=== PATIENT | male | born 1955 | race Caucasian/White ===

== ENCOUNTER → 2020-06-03 10:26 | Outpatient (BNVA) | payer MEDICARE, SELFPAY | PROVIDERS: PCP Internal Medicine; Visit Provider Urology | DX: R97.20 Elevated prostate specific antigen [PSA] (principal); N52.01 Erectile dysfunction due to arterial insufficiency; N48.6 Induration penis plastica | CPT/HCPCS: Q3014 ==

== ENCOUNTER → 2021-02-22 13:12 | Outpatient (BNVA) | payer MEDICARE, SELFPAY | PROVIDERS: Visit Provider Urology | DX: N40.1 Benign prostatic hyperplasia with lower urinary tract symptoms (principal); N13.8 Other obstructive and reflux uropathy; N52.01 Erectile dysfunction due to arterial insufficiency; N48.6 Induration penis plastica; R97.20 Elevated prostate specific antigen [PSA] | CPT/HCPCS: Q3014 ==

== ENCOUNTER → 2021-08-23 15:33 | Outpatient (BNVA) | payer MEDICARE, SELFPAY | PROVIDERS: Visit Provider Urology | DX: N40.1 Benign prostatic hyperplasia with lower urinary tract symptoms (principal); N13.8 Other obstructive and reflux uropathy; R97.20 Elevated prostate specific antigen [PSA]; N52.01 Erectile dysfunction due to arterial insufficiency | CPT/HCPCS: 51798; 99212 ==

== ENCOUNTER → 2022-04-05 08:31 | Outpatient (BNVA) | payer MEDICARE, SELFPAY | PROVIDERS: PCP Internal Medicine; Visit Provider Urology | DX: N40.1 Benign prostatic hyperplasia with lower urinary tract symptoms (principal); N13.8 Other obstructive and reflux uropathy; R97.20 Elevated prostate specific antigen [PSA] | CPT/HCPCS: Q3014 ==

== ENCOUNTER → 2022-10-11 08:32 | Outpatient (BNVA) | payer MEDICARE, SELFPAY | PROVIDERS: PCP Internal Medicine; Visit Provider Urology | DX: N40.1 Benign prostatic hyperplasia with lower urinary tract symptoms (principal); N13.8 Other obstructive and reflux uropathy; N48.6 Induration penis plastica | CPT/HCPCS: 51798; 99212 ==

== ENCOUNTER 2023-04-17 08:11 | Outpatient (AMB) | payer MEDICARE, SELFPAY ==
--- NOTE | 2023-04-17 08:15 | MHC.OFFVIS ---
Intake Intake Visit Reasons: 6m/PSA(set) Intake Note: Patient is Present for Telephone Follow Up PSA Urology Med: Finasteride, Sildenafil Antibiotic Allergy: None Blood Thinner: Eliquis Allergies acetaminophen [Vicodin] Allergy (Unknown, Verified 04/17/23 08:16) unknown hydrocodone [Vicodin] Allergy (Unknown, Verified 04/17/23 08:16) unknown oxycodone [Percocet] Allergy (Unknown, Verified 04/17/23 08:16) unknown Percodan Allergy (Unknown, Uncoded 04/17/23 08:16) unknown Medication List - Last Reconciled 04/17/23 by Ranjit Reddy MD apixaban (Eliquis) 5 mg PO BID atorvastatin 20 mg PO DAILY diltiazem HCl ER 360 mg PO DAILY finasteride 5 mg PO DAILY 90 days losartan 50 mg PO DAILY meclizine 25 mg PO BEDTIME pantoprazole 20 mg PO DAILY sildenafil 50 mg PO DAILY PRN 30 days sotalol 120 mg PO BID HPI HPI Comments History of Present Illness Details Darin ORDOÑEZ is a very pleasant male. He is a patient of Dr Hidalgo. He is seen for the following urologic conditions. - erectile dysfunction - elevated PSA Telemedicine Evaluation 15 min Consultation D[employer] Smiley Video attempted PSA stable Some progression of urinary symptoms Continue to follow Erectile dysfunction: Continues to have good response to low-dose sildenafil as needed - 50 mg prescription provided Peyronie's is staying stable and not interfering with erections. He presents today for for continued evaluation and management of erectile dysfunction. Symptoms have been present for/since gradually. Current treatment includes Viagra/sildenafil - 50 mg as needed on empty stomach At this time he experiences erections 04/06 are partial and insufficient for vaginal penetration, that undergo rapid detumesence after penetration, JOSEPH 12-16 Mild-Moderate ED. Nocturnal erections do occur. Currently they are in a stable relationship. Associated problems hypertension Yes diabetes No dyslipidemia Yes Overall he is satisfied with the current management. Therapeutic plan includes continue with current doses. Elevated PSA/Abnormal LUL: PSA fall in on finasteride to 3.8 Continue with medication and repeat in 6 months Laboratory investigations include a free and total PSA evaluation 11/05 5.0 F 14%, 05/07 4.7 12%, 05/08 4.3 14%, 05/09 4.7 %16, 01/08 6.2, 08/09 3.8, 03/11 3.8, 10/10 3.9, 04/12 3.2 Therapeutic plan will be continued surveillance [facility] Medical History High cholesterol HTN (hypertension) Peyronie's disease Elevated PSA Erectile dysfunction due to arterial insufficiency Incomplete emptying of bladder Surgical History History of gastrointestinal surgery Review of Systems Const All systems reviewed & are unremarkable except as noted in HPI and below Reports no additional complaints Resp Reports no additional complaints GI Reports no additional complaints Reports as per HPI Musc Reports no additional complaints Physical Exam Telemedicine evaluation Appropriate responses Regular breathing rate and rhythm HEENT Head: Yes normal to inspection Ears: hearing grossly normal bilaterally Eyes General: appearance normal, both eyes and all related structures Neck Neck: Yes normal visual inspection Chest Chest palpation & inspection: normal inspection of the chest Resp Effort & Inspection: normal respiratory effort and able to speak in complete sentences Assessment & Plan Assessment & Plan (1) BPH w urinary obs/LUTS: Code(s): N40.1 - Benign prostatic hyperplasia with lower urinary tract symptoms; N13.8 - Other obstructive and reflux uropathy (2) Erectile dysfunction due to arterial insufficiency: Code(s): N52.01 - Erectile dysfunction due to arterial insufficiency (3) Elevated PSA: Code(s): R97.20 - Elevated prostate specific antigen [PSA] Plan Six month follow-up labs Orders: Orders PSA,Total (Free>4and<10) 6 Months R97.20 - Elevated prostate specific antigen [PSA] Patient Instructions: Imaging studies, laboratory and physical exam results were discussed and reviewed in detail. No major barriers to patient understanding were identified. An opportunity to ask questions regarding the treatment plan was provided. All questions were answered. The patient expressed understanding and agreement with the above treatment plan. The patient is aware they should contact our office by phone for worsening of their current condition or the appearance of new urologic symptoms. Compliance is encouraged with any medications and followup testing that is ordered. It is a privilege to participate in the urologic care of your patient. If you have any questions or concerns regarding treatment for the above conditions, or other urologic issues, please do not hesitate to contact me. The office telephone contact is [phone]. This note is constructed using voice recognition software. While every effort has been made to ensure accuracy systems development manager errors may have been included. Yours sincerely, Dr Ranjit Reddy MD, [facility] - Urology Providers of Expert, Compassionate Care for the Genitourinary System Telehealth Telehealth Location of provider rendering services: practice address Location of patient: address on file Patient Identification confirmed using: Name, : Yes Telehealth method: video Patient verbally consented to treatment: Yes Patient verbally consented to billing insurance company: Yes Patient informed of any privacy concerns related to visit: Yes Coding Level of Care Code Tele Est Pt Level 3 (85357) Diagnoses BPH w urinary obs/LUTS N40.1; N13.8 Erectile dysfunction due to arterial insufficiency N52.01 Elevated PSA R97.20
== END 2023-04-17 09:42 | disposition home or self-care (01) ==
LOC: HO.HUSH 08:11
PROVIDERS: PCP Internal Medicine; Visit Provider Urology
DX: N40.1 Benign prostatic hyperplasia with lower urinary tract symptoms (principal); N13.8 Other obstructive and reflux uropathy; N52.01 Erectile dysfunction due to arterial insufficiency; R97.20 Elevated prostate specific antigen [PSA]
CPT/HCPCS: 99213

== ENCOUNTER → 2023-04-17 08:11 | Outpatient (BNVA) | payer MEDICARE, SELFPAY | PROVIDERS: PCP Internal Medicine; Visit Provider Urology ==

== ENCOUNTER 2023-10-16 08:23 | Outpatient (AMB) | payer MEDICARE, SELFPAY ==
--- NOTE | 2023-10-16 08:25 | A.OFFVIS_ITS ---
Intake Visit Reasons: 6M PSA(psa?) Intake Note: Patient is Present for Telephone Follow Up PSA Urology Med: Finasteride, Sildenafil Antibiotic Allergy: None Blood Thinner: Eliquis Optical Effects Layout Person Required: No Accompanied by: Self / Same As Patient Allergies acetaminophen [Vicodin] Allergy (Unknown, Verified 04/17/23 08:16) unknown hydrocodone [Vicodin] Allergy (Unknown, Verified 04/17/23 08:16) unknown oxycodone [Percocet] Allergy (Unknown, Verified 04/17/23 08:16) unknown Percodan Allergy (Unknown, Uncoded 04/17/23 08:16) unknown HPI Comments Details: Darin ORDOÑEZ is a very pleasant male. He is a patient of Dr Hidalgo. He is seen for the following urologic conditions. - erectile dysfunction - elevated PSA PSA stable Some progression of urinary symptoms Remains on medication Twelve month follow-up LUL 2+ Erectile dysfunction: Continues to have good response to low-dose sildenafil as needed - 50 mg prescription provided Peyronie's is staying stable and not interfering with erections. He presents today for for continued evaluation and management of erectile dysfunction. Symptoms have been present for/since gradually. Current treatment includes Viagra/sildenafil - 50 mg as needed on empty stomach At this time he experiences erections 04/06 are partial and insufficient for vaginal penetration, that undergo rapid detumesence after penetration, JOSEPH 12-16 Mild-Moderate ED. Nocturnal erections do occur. Currently they are in a stable relationship. Associated problems hypertension Yes diabetes No dyslipidemia Yes Overall he is satisfied with the current management. Therapeutic plan includes continue with current doses. Elevated PSA/Abnormal LUL: PSA remains stable at 3.8 Continue with finasteride medication and repeat in 6 months Laboratory investigations include a free and total PSA evaluation 11/05 5.0 F 14%, 05/07 4.7 12%, 05/08 4.3 14%, 05/09 4.7 %16, 01/08 6.2, 08/09 3.8, 03/11 3.8, 10/10 3.9, 04/12 3.2, 10/11 3.8 Therapeutic plan will be continued surveillance [facility] Medical History High cholesterol HTN (hypertension) Peyronie's disease Elevated PSA Erectile dysfunction due to arterial insufficiency Incomplete emptying of bladder Surgical History History of gastrointestinal surgery Review of Systems Const Denies chills and Denies fever(s) Card Reports no additional complaints and Denies syncope Resp Denies cough GI Denies abdominal pain and Denies heartburn Reports as per HPI and Denies change in libido Neuro Denies syncope Psych Denies change in libido Endo Denies change in libido Physical Exam Const General: cooperative, healthy appearing, comfortable and no acute distress Orientation/consciousness: patient oriented x3 HEENT Face and sinus: Yes normal facial exam Mouth: moist mucous membranes Neck Neck: Yes normal visual inspection, Yes full ROM and Yes trachea midline Chest Chest palpation & inspection: normal inspection of the chest Resp Effort & Inspection: normal respiratory effort, able to speak in complete sentences and no respiratory distress GI Inspection: Yes normal to inspection Back/Spine/Pelvis Cervical Spine: normal cervical lordosis Thoracic/Lumbar Spine: thoracic and lumbar spine normal to inspection Skin General skin exam: no rashes or lesions noted Neuro General: patient oriented x3, gait normal, tone normal and moves all extremities Extrem General: Yes normal to inspection and Yes capillary refill normal Assessment & Plan Assessment & Plan (1) BPH w urinary obs/LUTS: Code(s): N40.1 - Benign prostatic hyperplasia with lower urinary tract symptoms; N13.8 - Other obstructive and reflux uropathy Category: Medical (2) Elevated PSA: Code(s): R97.20 - Elevated prostate specific antigen [PSA] Category: Medical Plan Twelve month follow-up Orders: Orders Prostate Specific Antigen 364 Days N13.8 - Other obstructive and reflux uropathy, N40.1 - Benign prostatic hyperplasia with lower urinary tract symptoms Patient Instructions: Imaging studies, laboratory and physical exam results were discussed and reviewed in detail. No major barriers to patient understanding were identified. An opportunity to ask questions regarding the treatment plan was provided. All questions were answered. The patient expressed understanding and agreement with the above treatment plan. The patient is aware they should contact our office by phone for worsening of their current condition or the appearance of new urologic symptoms. Compliance is encouraged with any medications and followup testing that is ordered. It is a privilege to participate in the urologic care of your patient. If you have any questions or concerns regarding treatment for the above conditions, or other urologic issues, please do not hesitate to contact me. The office telephone contact is [phone]. This note is constructed using voice recognition software. While every effort has been made to ensure accuracy high density talc coater operator errors may have been included. Yours sincerely, Dr Ranjit Reddy MD, [facility] - Urology Providers of Expert, Compassionate Care for the Genitourinary System Coding Level of Care Code Est Pt Level 4 (01604) Diagnoses BPH w urinary obs/LUTS N40.1; N13.8 Elevated PSA R97.20
== END 2023-10-16 08:54 | disposition home or self-care (01) ==
PROVIDERS: PCP Internal Medicine; Visit Provider Urology
DX: N40.1 Benign prostatic hyperplasia with lower urinary tract symptoms (principal); N13.8 Other obstructive and reflux uropathy; R97.20 Elevated prostate specific antigen [PSA]
CPT/HCPCS: 99213

== ENCOUNTER → 2023-10-16 08:23 | Outpatient (BNVA) | payer MEDICARE, SELFPAY | PROVIDERS: PCP Internal Medicine; Visit Provider Urology | DX: N40.1 Benign prostatic hyperplasia with lower urinary tract symptoms (principal); N13.8 Other obstructive and reflux uropathy; R97.20 Elevated prostate specific antigen [PSA] | CPT/HCPCS: 99212 ==

== ENCOUNTER 2024-10-15 08:21 | Outpatient (AMB) | payer MEDICARE, SELFPAY ==
--- NOTE | 2024-10-15 08:26 | A.OFFVIS_ITS ---
Intake Visit Reasons: 1y/PSA/PVR(psa?) Intake Note: Patient is Present for 1y Follow Up PSA/PVR Urology Med: Finasteride, Sildenafil Antibiotic Allergy: None Blood Thinner: Eliquis Yard Assistant Required: No Accompanied by: Self / Same As Patient Allergies acetaminophen [Vicodin] Allergy (Unknown, Verified 10/15/24 08:27) unknown hydrocodone [Vicodin] Allergy (Unknown, Verified 10/15/24 08:27) unknown oxycodone [Percocet] Allergy (Unknown, Verified 10/15/24 08:27) unknown Percodan Allergy (Unknown, Uncoded 10/15/24 08:27) unknown HPI Comments Details: Darin ORDOÑEZ is a very pleasant male. He is a patient of Dr Hidalgo. He is seen for the following urologic conditions. - erectile dysfunction - elevated PSA PSA steerable Occasional weakness of stream at night Effective bladder emptying PVR 80 cc Using tadalafil 20 mg for erections Urinary Symptoms Review - Patient reports a slightly slow urinary stream, particularly nocturnally. - Nocturia noted with stream being slower at night. - During daytime, urinary stream is deemed adequate by the patient. - No additional urinary incontinence or pain symptoms reported. Erectile dysfunction: Using tadalafil 20 mg as needed Peyronie's is staying stable and not interfering with erections. He presents today for for continued evaluation and management of erectile dysfunction. Symptoms have been present for/since gradually. Prior treatment includes Viagra/sildenafil - 50 mg as needed on empty stomach At this time he experiences erections 1117 are partial and insufficient for vaginal penetration, that undergo rapid detumesence after penetration, JOSEPH 12-16 Mild-Moderate ED. Nocturnal erections do occur. Currently they are in a stable relationship. Associated problems hypertension Yes diabetes No dyslipidemia Yes Overall he is satisfied with the current management. Therapeutic plan includes continue with current doses. Elevated PSA/Abnormal LUL: PSA remains stable at 3.8 Continue with finasteride medication and repeat in 6 months Laboratory investigations include a free and total PSA evaluation 11/05 5.0 F 14%, 05/07 4.7 12%, 05/08 4.3 14%, 05/09 4.7 %16, 01/08 6.2, 08/09 3.8, 03/11 3.8, 10/10 3.9, 04/12 3.2, 10/11 3.8, 10/12 3.5 Therapeutic plan will be continued surveillance [facility] Medical History High cholesterol HTN (hypertension) Peyronie's disease Elevated PSA Erectile dysfunction due to arterial insufficiency Incomplete emptying of bladder Surgical History History of gastrointestinal surgery Review of Systems Const Denies chills and Denies fever(s) Card Reports no additional complaints and Denies syncope Resp Denies cough GI Denies abdominal pain and Denies heartburn Reports as per HPI and Denies change in libido Neuro Denies syncope Psych Denies change in libido Endo Denies change in libido Physical Exam Const General: cooperative, healthy appearing, comfortable and no acute distress Orientation/consciousness: patient oriented x3 HEENT Face and sinus: Yes normal facial exam Mouth: moist mucous membranes Neck Neck: Yes normal visual inspection, Yes full ROM and Yes trachea midline Chest Chest palpation & inspection: normal inspection of the chest Resp Effort & Inspection: normal respiratory effort, able to speak in complete sentences and no respiratory distress GI Inspection: Yes normal to inspection Back/Spine/Pelvis Cervical Spine: normal cervical lordosis Thoracic/Lumbar Spine: thoracic and lumbar spine normal to inspection Skin General skin exam: no rashes or lesions noted Neuro General: patient oriented x3, gait normal, tone normal and moves all extremities Extrem General: Yes normal to inspection and Yes capillary refill normal Assessment & Plan Assessment & Plan (1) Elevated PSA: Code(s): R97.20 - Elevated prostate specific antigen [PSA] Category: Medical (2) Peyronie's disease: Code(s): N48.6 - Induration penis plastica Category: Medical (3) Erectile dysfunction due to arterial insufficiency: Code(s): N52.01 - Erectile dysfunction due to arterial insufficiency Category: Medical (4) BPH w urinary obs/LUTS: Code(s): N40.1 - Benign prostatic hyperplasia with lower urinary tract symptoms; N13.8 - Other obstructive and reflux uropathy Category: Medical Plan 1. Erectile Dysfunction Continue tadalafil as needed. Positive response noted. 2. Benign Prostatic Hyperplasia Bph With Stable Psa Continue finasteride. Consider reducing to three times weekly. Monitor PSA. 3. Peyronie's Disease Stable condition. No current treatment changes. Discussion Notes During the visit, we reviewed the patient's current management of erectile dysfunction and BPH. The patient continues to respond well to tadalafil for erectile dysfunction, and we agreed to maintain the current treatment plan. For BPH, we discussed the stable PSA levels achieved with finasteride since 2021, and the potential to reduce the dosage frequency to Sunday, Sunday, and Sunday to reduce side effects. The patient is aware of the benefits of finasteride, including its effects on PSA levels and potential hair growth benefits. The patient's Peyronie's disease remains stable, and no intervention is currently required. We concluded the session by confirming the patient's understanding of the treatment plans and agreed to follow up in a year unless issues arise. Patient Instructions - Continue taking tadalafil as needed for erectile dysfunction. - Consider taking finasteride on Sunday, Sunday, and Sunday rather than daily. - Monitor urinary stream strength and report any significant changes. - Return for follow-up in one year or sooner if symptoms change. Orders: Orders Prostate Specific Antigen 12 Months N13.8 - Other obstructive and reflux uropathy, N40.1 - Benign prostatic hyperplasia with lower urinary tract symptoms Patient Instructions: This note is constructed using voice recognition software. While every effort has been made to ensure accuracy goggles assembler errors may have been included. Imaging studies, laboratory and physical exam results were discussed and reviewed in detail. No major barriers to patient understanding were identified. An opportunity to ask questions regarding the treatment plan was provided. All questions were answered. The patient expressed understanding and agreement with the above treatment plan. The patient is aware they should contact our office by phone for worsening of their current condition or the appearance of new urologic symptoms. Compliance is encouraged with any medications and followup testing that is ordered. It is a privilege to participate in the urologic care of your patient. If you have any questions or concerns regarding treatment for the above conditions, or other urologic issues, please do not hesitate to contact me. The office telephone contact is [phone]. Sincerely, Dr Ranjit Reddy MD, [facility] - Urology Compassionate Specialist Care for the Genitourinary System Coding Level of Care Code Est Pt Level 4 (79522) Complex EM visit Add On G2211 Diagnoses Elevated PSA R97.20 Peyronie's disease N48.6 Erectile dysfunction due to arterial insufficiency N52.01 BPH w urinary obs/LUTS N40.1; N13.8
--- OUTSIDE RECORDS SUMMARY | 2024-10-15 08:36 | XMS_ITS | Clinical Summary ---
Author Organization [facility] Guestmob [facility] Address [address] [place] [address] Phone Care Team Providers Care Driller Machine Name Role Phone Ethan Hidalgo MD Primary Care Provider [phone] Allergies Active Allergy Reactions Criticality Noted Date Comments Hydrocodone 10/27/2020 Oxycodone 10/27/2020 Diazepam 08/22/2024 Cold sweats/vomiting Medications finasteride (PROSCAR) 5 mg tablet Take 5 mg by mouth daily. Active dilTIAZem LA (CARDIZEM LA) 360 mg 24 hr tablet Take 1 Tablet by mouth daily. Active atorvastatin (LIPITOR) 20 mg tablet Take 1 Tab by mouth daily for 360 days. 0 Active sildenafil citrate (SILDENAFIL ORAL) Take 100 mg by mouth as needed. Active losartan (Cozaar) 100 mg tabletIndications :Primary hypertension Take 1 tablet (100 mg total) by mouth 1 (one) time each day. 30 each 11 5 08/23/19 26 Active sotaloL (BETAPACE) 120 mg tablet Take 1 tablet (120 mg total) by mouth 2 (two) times a day. 180 tablet 1 5 Active apixaban (Eliquis) 5 mg tablet Take 1 tablet (5 mg total) by mouth 2 (two) times a day. 180 tablet 3 5 Active sotaloL (BETAPACE) 120 mg tablet Take 1 Tablet by mouth 2 times daily. 09/24/19 25 Discontinu ed(Reorder ) apixaban (Eliquis) 5 mg tablet Take 1 Tablet by mouth 2 times daily. 4 09/25/19 25 Discontinu ed(Reorder ) Active Problems Problem Noted Date Diagnosed Date Shortness of breath 02/06/2023 Hyperlipidemia 05/24/2022 Overview (06/26/2024): Last Assessment & Plan: Patient's last LDL cholesterol was 103. This is acceptable. He continues on atorvastatin 20 mg once a day and will be updating labs in the near future. Cardiomyopathy (CMS/HCC V24, CMS/HCC V28) 2020 Overview (06/26/2024): Last Assessment & Plan: Patient's last echocardiogram showing an LVEF of 50 to 55%. This has improved as it previously was 45 to 50% in 2020. He feels well and denies any clinical symptoms of heart failure and is euvolemic on physical examination. I will make no changes to his medications at this time. Patient advised to seek emergency medical attention by calling 911 if they were to develop severe dyspnea, chest pain that did not resolve with rest or nitroglycerin, or if they were to faint. I've asked the patient to call if they develop worsening symptoms of heart failure such as increased shortness of breath, new or worsening cough, increased swelling in the legs or ankles, or weight gain of more than 2 pounds in one day or 4 pounds in one week. Hypertension 04/30/2020 Overview (06/26/2024): Last Assessment & Plan: Patient's blood pressure is elevated today with a reading of 150/82. Typically his blood pressure is under relatively good control. He continues on losartan and diltiazem. We will continue to monitor this and consider increasing losartan if his blood pressure remains elevated. He will be updating labs with his primary care provider in the coming weeks. Would recommend increasing losartan to 100 mg once a day if his blood pressure remains elevated and his labs are stable. Assessment & Plan (08/22/2024 9:38 AM EDT): Patient's blood pressure is high we are going to increase his losartan to 100 mg a day. He may need to have the losartan switched to valsartan. He is also been given a lab slip to check a basic metabolic profile 2 weeks after the increase in his medical dose. The patient has follow-up with primary care in November Orders: losartan (Cozaar) 100 mg tablet; Take 1 tablet (100 mg total) by mouth 1 (one) time each day. Basic metabolic panel; Future Atrial fibrillation (CMS/HCC V24, CMS/HCC V28) 1 07/01/2019 Overview (06/26/2024): Last Assessment & Plan: Patient has history of paroxysmal atrial fibrillation and continues on anticoagulation for continues on sotalol for rhythm control. EKG is stable and unchanged. His [id number] score is 3 representing a 3.2% risk for thromboembolism. He continues on anticoagulation with Eliquis without any bleeding or excessive bruising. Assessment & Plan (08/22/2024 9:38 AM EDT): Patient with fairly good control of his atrial fibrillation. Rare breakthrough. He is protected with anticoagulation. EKG shows sinus rhythm with a QT interval corrected 490 ms on sotalol which is within normal limits. Patient has a bundle branch block which might explain a slight the low ejection fraction due to mild dyssynchrony. Patient remains chronically anticoagulated Eliquis for CHADS2 score of 2 Orders: ECG 12 lead Encounters Date Type Department Care Team Description 09/24/2024 Telephone [facility] Cardiology [facility] [address] [facility] [address] [place] [address] Matt Thacker MD Med Refill (Eliquis) 09/23/2024 Telephone [facility] Cardiology [facility] [address] [facility] [address] [place] [address] Matt Thacker MD Med Refill 08/22/2024 8:50 AM EDT Office Visit [facility] [address] [facility] [address] [place] [address] Matt Thacker MD Atrial fibrillation, unspecified type (CMS/HCC V24, CMS/HCC V28) (Primary Dx); Primary hypertension 08/14/[address] [facility] [address] [facility] [address] [place] [address] Matt Thacker MD from Last 3 Months Medical History Medical History Date Comments Hyperlipidemia DX:Hyperlipidemi a Essential hypertension DX:Essent ial hypertension Family History Medical History Relation Name Comments Other: hepatitis-young age Father Hyperlipidemia Mother Hypertension Mother No Known Problems Sister Relation Name Status Comments Father Mother Sister Alive Social History Tobacco Use Types Packs/Day Years Used Date Smoking Tobacco: Some Days Cigars Smokeless Tobacco: Never Tobacco Cessation:Ready to Q uit: Not Asked; Counseling Given: Not Answered Alcohol Use Standard Drinks/Week Comments Yes 0 (1 standard drink = 0.6 oz pur e alcohol) 3 drinks daily Sex and Gender Information Value Date Recorded Sex Assigned at Not on file Legal Sex Male 1:35 PM EST Gender Identity Not on file Sexual Orientation Not on file Obstetrics History Last Filed Vital Signs Vital Sign Reading Time Taken Comments Blood Pressure 160/80 08/22/2024 8:50 AM EDT Pulse 57 08/07/2023 8:39 AM EDT Temperature - - Respiratory Rate - - Oxygen Saturation 98% 08/22/2024 8:50 AM EDT Inhaled Oxygen Concentration - - Weight 73.6 kg (162 lb 4.8 oz) 08/22/2024 8:50 A M EDT Height 170.2 cm (5' 7 ) 08/22/2024 8:50 AM EDT Body Mass Index 25.42 08/22/2024 8:50 AM EDT Plan of Treatment Health Maintenance Due Date Last Done Comments COVID-19 Vaccine (#1) 1960 DTaP,Tdap,and Td Vaccines (1 - Tdap) 1973 Pneumococcal Vaccine: 50+ Years (1 of 2 - PCV) 1973 Zoster Vaccines (1 of 2) 1973 Abdominal Aortic Aneurysm (AAA) Screen 04/29/2022 Cholesterol Screening (Lipid Panel) 04/29/2022 Colorectal Cancer Screening: Colonoscopy 04/29/2022 Depression Screening 04/29/2022 Falls Risk Assessment 04/29/2022 Hepatitis C Screening 04/29/2022 Social Influencers of Health Screening 04/29/2022 Hypertension/CHF/CAD Annual BMP Blood Test 04/30/2022 Medicare Annual Wellness Visit 11/14/2023 11/13/2022 Influenza Vaccine (Season Ended) 2025 01/30/2023, 02/17/2022, 02/28/2021 RSV Immunization Adult Patients (1 - 1-dose 75+ series) 2029 HIB Vaccines Aged Out No longer eligi ble based on patient's age to complete this topic HPV Vaccines Aged Out No longer eligi ble based on patient's age to complete this topic Hepatitis A Vaccines Aged Out No long er eligible based on patient's age to complete this topic Hepatitis B Vaccines Aged Out No long er eligible based on patient's age to complete this topic IPV Vaccines Aged Out No longer eligi ble based on patient's age to complete this topic MMR Vaccines Aged Out No longer eligi ble based on patient's age to complete this topic Meningococcal ACWY Vaccine Aged Out N o longer eligible based on patient's age to complete this topic Meningococcal B Vaccine Aged Out No l onger eligible based on patient's age to complete this topic RSV Immunization Patients Under 20 months Aged Out No longer eligible b ased on patient's age to complete this topic Varicella Vaccines Aged Out No longer eligible based on patient's age to complete this topic Procedures Procedure Name Priority Date/Time Associated Diagnosis Comments ECG 12-LEAD Routine 08/22/2024 9:00 AM EDT Atrial fibrillation, unspecified type (CMS/HCC V24, CMS/HCC V28) from Last 3 Months Results * ECG 12 lead (08/22/2024 9:00 AM EDT) Ventricular Rate ECG 58 BPM GEMUSE Atrial Rate 58 BPM GEMUSE P-R Interval 152 ms GEMUSE QRS Duration 152 ms GEMUSE Q-T Interval 500 ms GEMUSE QTc 490 ms GEMUSE P Wave [place] 60 degrees GEMUSE R [place] 4 degrees GEMUSE T [place] 81 degrees GEMUSE ECG Interpretation Sinus bradycardia Left bundle branch block Abnormal ECG No previous ECGs available Confirmed by Jessica THACKER JAMES ([id number]) on 08/22/2024 12:38:13 PM GEMUSE 08/22/2024 9:00 AM EDT 08/22/2024 12:38 PM EDT us Matt Thacker MD ECG ORDERABLES Final Result GEMUSE from Last 3 Months Insurance [employer] Care Teams Driller Machine Relationship Specialty Start Date End Date Ethan Hidalgo MD [address] [place] [id number] PCP - General Internal Medicine 08/22/24
== END 2024-10-15 08:50 | disposition home or self-care (01) ==
LOC: HO.HUSH 08:22
PROVIDERS: PCP Internal Medicine; Visit Provider Urology
DX: R97.20 Elevated prostate specific antigen [PSA] (principal); N48.6 Induration penis plastica; N52.01 Erectile dysfunction due to arterial insufficiency; N40.1 Benign prostatic hyperplasia with lower urinary tract symptoms; N13.8 Other obstructive and reflux uropathy
CPT/HCPCS: 99214; G2211

== ENCOUNTER → 2024-10-15 08:21 | Outpatient (BNVA) | payer MEDICARE, SELFPAY | PROVIDERS: PCP Internal Medicine; Visit Provider Urology | DX: N40.1 Benign prostatic hyperplasia with lower urinary tract symptoms (principal); N13.8 Other obstructive and reflux uropathy; N52.01 Erectile dysfunction due to arterial insufficiency; N48.6 Induration penis plastica; R97.20 Elevated prostate specific antigen [PSA] | CPT/HCPCS: 99212 ==